=== PATIENT | female | born 1950 | race Caucasian/White ===

== ENCOUNTER 2020-03-24 23:37 | Emergency (ER) | payer MEDICARE, MEDICAID ==
[~2020-03-24] VITALS: Ht 162.6 cm; Wt 72.6 kg
[2020-03-24] MEDS ORDERED: BENICAR40 MG PO (23:54)
[2020-03-24] MEDS ORDERED: NORVASC 2.5 MG2.5 M1 PO (23:54)
[2020-03-24] MEDS ORDERED: PROTONIX40 M2 PO (23:54)
[2020-03-24] MEDS ORDERED: LEVOTHYROXINE100 MC2 PO (23:55)
[2020-03-24] MEDS ORDERED: CARVEDILOL25 MG PO (23:55)
[2020-03-24] MEDS ORDERED: NEURONTIN 300M300 M2 PO (23:56)
[2020-03-24] MEDS ORDERED: IPRAT-ALBUT 0.5-3 ML NEB (23:57)
[2020-03-25 00:23] LABS: ABSOLUTE EOSINOPHILS 0.2 thou/uL (0.0-0.7); ABSOLUTE LYMPHOCYTES 2.7 thou/uL (0.8-5.3); ABSOLUTE MONOCYTES 0.6 thou/uL (0.0-1.2); ABSOLUTE NEUTROPHILS 3.1 thou/uL (1.6-8.1); BASOPHILS 0.6 %; EOSINOPHILS 3.1 %; HEMATOCRIT 35.8 % (37.0-47.0); HEMOGLOBIN 11.5 gm/dL (12.0-15.0); LYMPHOCYTES 40.5 %; MCH 29.9 pg (26.0-34.0); MCHC 32.2 g/dL (28.0-37.0); MCV 92.8 fL (80.0-100.0); MONOCYTES 8.8 %; MPV 7.7 fl. (7.2-11.1); NUCLEATED RBCS 0 /100WBC; PLATELET COUNT* 215 thou/uL (150-400); RBC 3.86 mil/uL (4.20-5.00); RDW-CV 15.8 % (10.5-14.5); WBC 6.5 thou/uL (4.0-11.0)
[2020-03-25] MEDS ORDERED: TRAMADOL 50 MG50 MG PO (00:25)
[2020-03-25] MEDS ORDERED: FLEXERIL PO (00:25)
[2020-03-25 00:39] LABS: CALCIUM 7.9 mg/dL (8.5-10.1); CREATININE 0.5 mg/dL (0.6-1.3); POTASSIUM 3.3 mmol/L (3.5-5.1)
[2020-03-25 00:44] LABS: ALBUMIN 2.9 g/dL (3.4-5.0); TOTAL BILIRUBIN 0.1 mg/dL (<0.1-1.0); TOTAL PROTEIN 6.1 g/dL (6.4-8.2)
[2020-03-25 01:11] VITALS: BP 137/62
== END 2020-03-25 01:13 | disposition home or self-care (01) ==
LOC: M.ERS 23:37
PROVIDERS: Family Medicine
DX: S20.211A Contusion of right front wall of thorax, initial encounter (principal); I10 Essential (primary) hypertension; I25.10 Atherosclerotic heart disease of native coronary artery without angina pectoris; J44.9 Chronic obstructive pulmonary disease, unspecified; M79.7 Fibromyalgia; E03.9 Hypothyroidism, unspecified; F17.210 Nicotine dependence, cigarettes, uncomplicated